=== PATIENT | female | born 1995 | race Caucasian/White ===

== ENCOUNTER 2021-02-08 03:55 | Inpatient (IN) | payer MEDICAID, OTHER ==
[~2021-02-08] VITALS: Ht 165.1 cm; Wt 139.3 kg
[2021-02-08] MEDS ORDERED: ONDANSETRON HCL 4MG/2ML INJ IV STA (04:18)
[2021-02-08] MEDS ORDERED: SODIUM CHLORIDE 0.9% 1,000 ML IV ONE (04:30)
[2021-02-08 04:40] LABS: BASOPHILS % 0.2 % (0.0-2.0); EOSINOPHILS % 0.2 % (0.0-5.0); HEMATOCRIT. 38.4 % (36.0-48.0); HEMOGLOBIN. 12.7 g/dL (12.0-16.0); LYMPHOCYTES % 10.6 % (20.0-50.0); MEAN CORPUSCULAR HEMOGLOBIN 30.4 pg (28.0-32.0); MEAN CORPUSCULAR VOLUME 92.1 fL (81.0-99.0); MEAN PLATELET VOLUME 9.1 fl (7.4-10.4); MONOCYTES % 3.2 % (2.0-8.0); NEUTROPHILS % 85.8 % (40.0-76.0); PLATELET 315 x1000/uL (130-400); RED BLOOD CELL COUNT 4.17 mill/uL (4.2-5.4); RED CELL DISTRIBUTION WIDTH 14.4 % (11.6-14.6)
[2021-02-08 05:03] LABS: CHLORIDE 109 mEq/L (98-107)
[2021-02-08 05:04] LABS: HCG SCREEN NEGATIVE
[2021-02-08 05:32] LABS: ETHANOL BLOOD 323 mg/dL
[2021-02-08] MEDS ORDERED: LEVOFLOXACIN 750MG PREMIX 150 ML IV ONE (07:45)
[2021-02-08 08:03] LABS: BG BASE EXCESS -6.7 mmol/L (-2.0-2.0); BG CARBOXYHEMOGLOBIN 0.3 % (0.5-1.5); BG DEOXYHEMOGLOBIN 2.9 % (0.0-5.0); BG FRACTION INSPIRED OXYGEN 100; BG HCO3 ACT 19.7 mmol/L (22.0-26.0); BG METHEMOGLOBIN 0.4 % (0.0-1.5); BG OXYGEN SATURATION 97.1 % (92.0-98.5); BG OXYHEMOGLOBIN 96.4 % (94.0-97.0); BG PCO2 42.7 mmHg (35.0-45.0); BG PH 7.282 (7.350-7.450); BG PO2 101.9 mmHg (75.0-100.0); BG SAMPLE SITE LEFT RADIAL; BG TOTAL HEMOGLOBIN 13.5 g/dL (12.0-18.0); BG VENT MODE MASK - NRB
[2021-02-08 09:38] LABS: CREATINE KINASE 204 IU/L (26-192)
[2021-02-08 10:35] LABS: D-DIMER 4.18 mg/L FEU (<0.50)
[2021-02-08] MEDS ORDERED: FOLIC ACID 1 MG, THIAMINE HCL 100 MG, MVI, ADULT NO.1 10 ML in DEXTROSE 5% WATER 1,000 ML IV SCH (12:15)
[2021-02-08] MEDS ORDERED: PIPERACILLIN/TAZOBACTAM 3.375GM/50ML PREMIX IV SCH (12:15)
[2021-02-08] MEDS ORDERED: PIPERACILLIN/TAZ 3.375G PREMIX 50 ML IV NR (12:30)
[2021-02-08] MEDS ORDERED: FOLIC ACID 1 MG, THIAMINE HCL 100 MG, MVI, ADULT NO.1 10 ML in DEXTROSE 5% WATER 1,000 ML IV ONE (12:45)
[2021-02-08 13:00] VITALS: BP 123/70
[2021-02-08 14:27] VITALS: BP 123/70
[2021-02-08] MEDS ORDERED: PIPERACILLIN/TAZOBACTAM 3.375G in DEXT 5% WATER 50ML IV SCH (15:30)
[2021-02-08 16:00] VITALS: BP 112/73
[2021-02-08 18:00] VITALS: BP 112/61
[2021-02-08] MEDS ORDERED: VANCOMYCIN 2,000 MG in DEXT 5% WATER 500 ML IV SCH (18:00)
[2021-02-08] MEDS ORDERED: CEFTRIAXONE 2 G in DEXTROSE 5% WATER 50 ML IV SCH (18:00)
[2021-02-08] MEDS: IPRATROPIUM/ALBUTEROL 0.5-3(2.5)MG/3ML NEB HHN SCH (20:26)
[2021-02-08] MEDS ORDERED: CEFTRIAXONE 2 G PREMIX 50 ML IV SCH (21:00)
[2021-02-08 22:00] VITALS: BP 113/67
[2021-02-08] MEDS: THIAMINE HCL 200 MG in SODIUM CHLORIDE 0.9% 98 ML IV SCH (23:24)
[2021-02-08] MEDS ORDERED: VANCOMYCIN 1250MG in DEXTROSE 5% WATER 250ML IV SCH (23:30)
[2021-02-09] VITALS (10 sets, daily range): BP systolic 97–130; BP diastolic 45–77
[2021-02-09] MEDS: IPRATROPIUM/ALBUTEROL 0.5-3(2.5)MG/3ML NEB HHN SCH ×4 (00:13→21:05)
[2021-02-09 06:45] LABS: BASOPHILS % 0.3 % (0.0-2.0); EOSINOPHILS % 0.1 % (0.0-5.0); HEMATOCRIT. 35.2 % (36.0-48.0); HEMOGLOBIN. 11.8 g/dL (12.0-16.0); LYMPHOCYTES % 10.6 % (20.0-50.0); MEAN CORPUSCULAR HEMOGLOBIN 29.9 pg (28.0-32.0); MEAN CORPUSCULAR VOLUME 89.6 fL (81.0-99.0); MEAN PLATELET VOLUME 9.3 fl (7.4-10.4); MONOCYTES % 4.3 % (2.0-8.0); NEUTROPHILS % 84.7 % (40.0-76.0); PLATELET 211 x1000/uL (130-400); RED BLOOD CELL COUNT 3.93 mill/uL (4.2-5.4); RED CELL DISTRIBUTION WIDTH 14.1 % (11.6-14.6)
[2021-02-09 06:54] LABS: CHLORIDE 106 mEq/L (98-107)
[2021-02-09] MEDS: CEFTRIAXONE 1,000 MG in DEXTROSE 5% WATER 50 ML IV SCH (10:31)
[2021-02-09] MEDS ORDERED: ACETAMINOPHEN 325MG TABLET PO PRN (20:45)
[2021-02-09] MEDS: THIAMINE HCL 200 MG in SODIUM CHLORIDE 0.9% 98 ML IV SCH (20:48)
[2021-02-10] VITALS: BP 149/80
[2021-02-10] MEDS: IPRATROPIUM/ALBUTEROL 0.5-3(2.5)MG/3ML NEB HHN SCH ×4 (01:10→20:03)
[2021-02-10 04:00] VITALS: BP 140/78
[2021-02-10 08:00] VITALS: BP 126/69
[2021-02-10 08:04] LABS: CHLORIDE 106 mEq/L (98-107)
[2021-02-10] MEDS ORDERED: MORPHINE SULFATE 2 MG/ML CPJ (NOT FOR IM USE) IV PRN (08:45)
[2021-02-10] MEDS: CEFTRIAXONE 1,000 MG in DEXTROSE 5% WATER 50 ML IV SCH (09:07)
[2021-02-10 12:00] VITALS: BP 137/78
[2021-02-10 12:05] LABS: BASOPHILS % 0.8 % (0.0-2.0); EOSINOPHILS % 1.4 % (0.0-5.0); HEMATOCRIT. 34.2 % (36.0-48.0); HEMOGLOBIN. 11.4 g/dL (12.0-16.0); LYMPHOCYTES % 13.7 % (20.0-50.0); MEAN CORPUSCULAR HEMOGLOBIN 29.7 pg (28.0-32.0); MEAN CORPUSCULAR VOLUME 89.2 fL (81.0-99.0); MEAN PLATELET VOLUME 9.2 fl (7.4-10.4); MONOCYTES % 7.2 % (2.0-8.0); NEUTROPHILS % 76.9 % (40.0-76.0); PLATELET 209 x1000/uL (130-400); RED BLOOD CELL COUNT 3.83 mill/uL (4.2-5.4)
[2021-02-10 15:51] VITALS: BP 112/63
[2021-02-10 20:00] VITALS: BP 161/97
[2021-02-10] MEDS ORDERED: GUAIFENESIN 600MG ER TABLET PO PRN (20:30)
[2021-02-10] MEDS: THIAMINE HCL 200 MG in SODIUM CHLORIDE 0.9% 98 ML IV SCH (20:58)
[2021-02-11] MEDS: IPRATROPIUM/ALBUTEROL 0.5-3(2.5)MG/3ML NEB HHN SCH ×4 (01:28→20:20)
[2021-02-11 04:00] VITALS: BP 122/61
[2021-02-11 08:00] VITALS: BP 121/68
[2021-02-11] MEDS: CEFTRIAXONE 1,000 MG in DEXTROSE 5% WATER 50 ML IV SCH ×2 (09:29→22:23)
[2021-02-11 09:41] LABS: BASOPHILS % 0.4 % (0.0-2.0); EOSINOPHILS % 2.5 % (0.0-5.0); HEMOGLOBIN. 11.9 g/dL (12.0-16.0); LYMPHOCYTES % 15.1 % (20.0-50.0); MEAN CORPUSCULAR HEMOGLOBIN 30.6 pg (28.0-32.0); MEAN CORPUSCULAR VOLUME 90.2 fL (81.0-99.0); MONOCYTES % 5.8 % (2.0-8.0); NEUTROPHILS % 76.2 % (40.0-76.0); PLATELET 235 x1000/uL (130-400); RED BLOOD CELL COUNT 3.88 mill/uL (4.2-5.4); RED CELL DISTRIBUTION WIDTH 14.3 % (11.6-14.6)
[2021-02-11 09:42] LABS: CHLORIDE 107 mEq/L (98-107)
[2021-02-11 10:00] VITALS: BP 109/67
[2021-02-11 12:00] VITALS: BP 114/75
[2021-02-11 20:00] VITALS: BP 145/81
[2021-02-11] MEDS: GUAIFENESIN 600MG ER TABLET PO SCH (21:00)
[2021-02-11 21:46] VITALS: BP 126/83
[2021-02-11] MEDS: THIAMINE HCL 200 MG in SODIUM CHLORIDE 0.9% 98 ML IV SCH (21:46)
[2021-02-12] VITALS: BP 126/83
[2021-02-12 04:00] VITALS: BP 146/76
[2021-02-12 06:00] VITALS: BP 121/68
[2021-02-12 06:12] LABS: BASOPHILS % 0.6 % (0.0-2.0); EOSINOPHILS % 2.6 % (0.0-5.0); HEMATOCRIT. 35.4 % (36.0-48.0); HEMOGLOBIN. 11.9 g/dL (12.0-16.0); MEAN CORPUSCULAR HEMOGLOBIN 30.4 pg (28.0-32.0); MEAN CORPUSCULAR VOLUME 90.3 fL (81.0-99.0); MEAN PLATELET VOLUME 9.2 fl (7.4-10.4); MONOCYTES % 8.2 % (2.0-8.0); NEUTROPHILS % 66.6 % (40.0-76.0); PLATELET 260 x1000/uL (130-400); RED BLOOD CELL COUNT 3.92 mill/uL (4.2-5.4); RED CELL DISTRIBUTION WIDTH 14.1 % (11.6-14.6)
[2021-02-12 08:00] VITALS: BP 123/82
[2021-02-12] MEDS: IPRATROPIUM/ALBUTEROL 0.5-3(2.5)MG/3ML NEB HHN SCH ×2 (08:06→13:10)
[2021-02-12] MEDS: CEFTRIAXONE 1,000 MG in DEXTROSE 5% WATER 50 ML IV SCH (09:28)
[2021-02-12] MEDS: GUAIFENESIN 600MG ER TABLET PO SCH (09:28)
[2021-02-12 12:00] VITALS: BP 136/78
[2021-02-12] MEDS ORDERED: LEVO500T89 MT (12:55)
[2021-02-12 13:53] VITALS: BP 136/78
== END 2021-02-12 18:23 | disposition home or self-care (01) | DRG 871 ==
LOC: ER 03:55 → 5EST 09:40 → EDBEDREQTM 09:48 → EDBEDREQ 09:48 → ENRESERV 11:58
PROVIDERS: ADMIT Internal Medicine; ATTEND Internal Medicine
PROC: 5A09357 Assistance with Respiratory Ventilation, Less than 24 Consecutive Hours, Continuous Positive Airway Pressure (ICD-10-PCS; principal; 2021-02-08)
DX: A41.9 Sepsis, unspecified organism (principal); J69.0 Pneumonitis due to inhalation of food and vomit; J96.01 Acute respiratory failure with hypoxia; J18.9 Pneumonia, unspecified organism; G92.8 Other toxic encephalopathy; E87.2 Acidosis; Z68.43 Body mass index [BMI] 50.0-59.9, adult; Y90.8 Blood alcohol level of 240 mg/100 ml or more; F10.129 Alcohol abuse with intoxication, unspecified; E66.9 Obesity, unspecified; Z20.822 Contact with and (suspected) exposure to COVID-19; Z71.6 Tobacco abuse counseling; Z82.49 Family history of ischemic heart disease and other diseases of the circulatory system
CPT/HCPCS: 36415; 36600; 71045; 80048; 80053; 80320; 82375; 82550; 82728; 82805; 83605; 83615; 83880; 84145; 84484; 84703; 85025; 85379; 85384; 86140; 87426; 93005; 94640; 94660; 99285; C1893; J0696; J1956; J2405; J2543; J3370; J3411; J3490; J7030; J7050; J7060; J7070; G0480